=== PATIENT | female | born 1950 | race Caucasian/White ===

== ENCOUNTER 2022-05-11 12:27 | Outpatient (CLI) | payer MEDICARE, SELFPAY | END 2022-05-11 12:28 | disposition home or self-care (01) | PROVIDERS: PCP Family Medicine; Visit Provider Urology | DX: N31.9 Neuromuscular dysfunction of bladder, unspecified (principal); Z01.818 Encounter for other preprocedural examination | CPT/HCPCS: 87086; 87088 ==

== ENCOUNTER 2022-05-17 00:42 | Day surgery (SDC) | payer MEDICARE, SELFPAY ==
[2022-05-08 09:34] VITALS: BMI 28.0
--- NOTE | 2022-05-08 09:45 | PC.NURSE ---
Report to the Outpatient Waiting Room, entrance under the green pavilion located off [facility], at time _0830_ on date _05/17/22_. Planned Procedure Time: _1030_. Time changes happen often and if your time is changed the preop area will call you the afternoon before. - You and your visitor will be asked to self-screen and do not enter if you have any COVID symptoms. - Only one visitor is requested with a max of two and NO children visitors are allowed at this time. - The patient visitor may be requested to leave or wait in car when not with patient due to distancing restrictions. - A mask is optional within the hospital at this time. Patients may have clear liquids (water, carbonated beverages, clear teas, apple juice) until 3 hours prior to surgery (0730 AM) with a maximum of 20 ounces. - No food from midnight until time of surgery Take the following medications with a SIP of water the morning of surgery: _ALPRAZOLAM (XANAX) IF NEEDED_ DO NOT STOP ANY OF YOUR OTHER PRESCRIPTION MEDICATIONS PRIOR TO SURGERY ?EXCEPT THE FOLLOWING Medications to discontinue per physician ___N/A , Date to take last dose Please no make-up, nail macedonian, hairspray, perfume, deodorant, or body powder the day of surgery. No jewelry (including any body piercings) or valuables the day of surgery, leave them at home. Please take a shower or bath the night before, or the morning of, surgery with an antibacterial soap. Wear comfortable, loose fitting clothing. - Jewelry must be removed prior to entering the operating room. Rings and piercings that are not removed may be cut off. - The hospital will not accept responsibility for valuables. - Please leave all valuables, including medications, at home the day of surgery. If you are going home after surgery, a licensed patrol driver must drive you home. - NO public transportation without another adult if you receive anesthesia. - We recommend that an adult stay with you for 24 hours following discharge. - We also recommend that you do not drive, make important decision, drink alcoholic beverages, or take any drugs that were not prescribed by your health care provider for at least 24 hours after your discharge time. Follow any additional instructions given to you from your surgeon. If you or anyone in your household have experienced Covid symptoms in the past week, please notify your surgeon or the nurse liaison at the phone number below for possible testing. Telephone instructions given to _PATIENT_and asked if any additional questions and then verbalized understanding. Patient advised to call surgeon office or pre surgery nurse liaison [phone] if any additional questions.
--- NOTE | 2022-05-13 12:45 | P.HP_ITS ---
H&P: HPI History of Present Illness Date/Time: 05/13/22 12:45 Chief Complaint: Hunner's ulcer Narrative: Pelvic pain symptoms and visible lesion on cystoscopy [facility] Past Medical History Medical History (Updated 05/13/22 @ 12:45 by Ciro Rubin MD) Anxiety Hypothyroidism (acquired) Social History Social History Smoking status: Former smoker Tobacco type: cigarettes Second hand tobacco smoke exposure: No Smoking end date: 03/10/99 Additional smoking assessment comments: STATES SMOKED ON/OFF ONLY ON THE WEEKENDS X 15YS - QUIT 1999 Alcohol intake: never Substance use: never Substance use type: does not use Living arrangements: alone Occupation/Education: retired Spiritual care concerns: No Meds Home Medications and Allergies Home Medications Medication Instructions Recorded Confirmed Type alprazolam 1 mg tablet 1 mg PO QHS PRN anxiety #10 tabs 12/05/21 05/08/22 Rx meclizine 25 mg tablet 25 mg PO TID PRN dizziness #10 tabs 12/05/21 05/08/22 Rx Allergies Allergy/AdvReac Type Severity Reaction Status Date / Time aspirin Allergy Severe hives, Verified 05/08/22 09:32 tinnitus Exam Narrative: No acute distress Normal breathing Alert orient x3 Assessment and Plan Assessment and plan (1) Hunner's ulcer: Code(s): N30.10 - Interstitial cystitis (chronic) without hematuria Status: Acute Assessment and Plan: Cystoscopy, bladder biopsy, steroid injection. Understands risks of bleeding, infection, lack of efficacy, damage to the urinary tract. Agrees to proceed
--- NOTE | 2022-05-13 12:47 | PM.IMHP ---
H&P: HPI History of Present Illness Date/Time: 05/13/22 12:47 Chief Complaint: Hunner's ulcer Narrative: Pelvic pain symptoms and visible lesion on cystoscopy Review of Systems Review of Systems: All systems reviewed & are unremarkable except as noted in HPI and below PMFSH Past Medical History Medical History Anxiety Hypothyroidism (acquired) Social History Social History Smoking status: Former smoker Tobacco type: cigarettes Second hand tobacco smoke exposure: No Smoking end date: 03/10/99 Additional smoking assessment comments: STATES SMOKED ON/OFF ONLY ON THE WEEKENDS X 15YS - QUIT 1999 Alcohol intake: never Substance use: never Substance use type: does not use Living arrangements: alone Occupation/Education: retired Spiritual care concerns: No Meds Home Medications and Allergies Home Medications Medication Instructions Recorded Confirmed Type alprazolam 1 mg tablet 1 mg PO QHS PRN anxiety #10 tabs 12/05/21 05/08/22 Rx meclizine 25 mg tablet 25 mg PO TID PRN dizziness #10 tabs 12/05/21 05/08/22 Rx Allergies Allergy/AdvReac Type Severity Reaction Status Date / Time aspirin Allergy Severe hives, Verified 05/08/22 09:32 tinnitus Exam Narrative: No acute distress Normal breathing Alert orient x3 Assessment and Plan Assessment and plan (1) Hunner's ulcer: Code(s): N30.10 - Interstitial cystitis (chronic) without hematuria Status: Acute Assessment and Plan: Cystoscopy, bladder biopsy, steroid injection. Understands risks of bleeding, infection, damage to the urinary tract, lack of efficacy. Agrees to proceed
--- NOTE | 2022-05-17 07:14 | WPDHPUPDATE1 ---
History and Physical Update Update Date/Time: 05/17/22 07:14 History and Physical has been reviewed, including an updated exam of the patient. There are NO changes in the patient's condition. Risks, benefits, and alternatives have been discussed and questions answered. Patient agrees to proceed with procedure.
--- NOTE | 2022-05-17 09:23 | P.PNAN_ITS ---
Anes - Initial Pre Proc Eval Procedure: Operation Date: 05/17/22 10:30 Proposed Procedures p Cystoscopy, Bladder Biopsy With Steroid Injection - Ciro Rubin MD Date/Time: 05/17/22 09:23 Surgeon: Ciro Rubin MD Pre Op Diagnosis: neuropathic Bladder Patient Data Age: 71 Gender: F Height: 1.6 m Weight: 71.81 kg Allergies Allergy/AdvReac Type Severity Reaction Status Date / Time aspirin Allergy Severe hives, Verified 05/08/22 09:32 tinnitus Home Medications Medication Instructions Recorded Confirmed Type alprazolam 1 mg tablet 1 mg PO QHS PRN anxiety #10 tabs 12/05/21 05/08/22 Rx meclizine 25 mg tablet 25 mg PO TID PRN dizziness #10 tabs 12/05/21 05/08/22 Rx Patient hx anesthesia problems: none Family hx anesthesia problems: none Results Review: All pre-operative results and documents have been reviewed as part of the pre- operative evaluation. [facility] Past Medical History Medical History Anxiety Hypothyroidism (acquired) Social History Social History Smoking status: Former smoker Tobacco type: cigarettes Second hand tobacco smoke exposure: No Smoking end date: 03/10/99 Additional smoking assessment comments: STATES SMOKED ON/OFF ONLY ON THE WEEKENDS X 15YS - QUIT 1999 Alcohol intake: never Substance use: never Substance use type: does not use Living arrangements: alone Occupation/Education: retired Spiritual care concerns: No Anes - Eval Final PreProcedure Day of Procedure 05/17/22 09:23 Patient weight: normal Heart: regular rate and rhythm Lungs: clear to auscultation Airway: Mallampati scale class II Neurological: alert and oriented Last oral intake: >/= 8 hours ASA classification: II Emergent: no Anesthetic plan: proceed Anesthesia type and monitoring: general GIVS and standard monitoring Results Review: All pre-operative results and documents have been reviewed as part of the pre- operative evaluation. Informed Consent: The patient's anesthetic plan and its attendant risks and benefits were discussed with the patient/family/POA. Questions were solicited and answers provided to the satisfaction of the patient/family/POA.
[2022-05-17 09:27] VITALS: BP 95/48; PULSE 94; RESP 14; TEMP 36.3; O2SAT 100
[2022-05-17] MEDS: LACTATED RINGERS 1,000 ML 30 ML IV CONT (09:34)
[2022-05-17] MEDS: ceFAZolin 2 GM/D5W 50 ML 2 GM/50 ML BAG IVPB (10:35)
[2022-05-17] MEDS: TRIAMCINOLONE ACET INJ 40 MG/ML VIAL 200 MG XX (10:52)
[2022-05-17] MEDS: LIDOCAINE HCL 2% GEL UROJET 10 ML PKG MUCOUS MEM (10:53)
[2022-05-17 11:06] VITALS: BP 97/55; PULSE 88; RESP 14; O2SAT 100
--- NOTE | 2022-05-17 11:16 | W.PM.PROC2 ---
Procedure Note - Detailed Date of Procedure 05/17/22 Pre-op Diagnosis Hunner's ulceration Post-op Diagnosis Same Procedure Performed cystoscopy, bladder biopsy, injection of steroid Surgeon Ciro Rubin MD Anesthesia MAC Indications this is a woman with bladder pain and frequency. She was visible lesions consistent with Hunner's ulceration she presents for the above. She understands risks of bleeding, infection, damage to the urinary tract, lack of efficacy, need for repeat procedures. She agrees to proceed Findings areas of Hunner's ulceration on the dome of the bladder Description of Procedure she was correctly identified. Informed consent obtained. She from the operating room. She was given MAC anesthesia. She was placed in dorsal lithotomy position. She was prepped and draped sterile fashion. Time-out performed. I applied Uro jet. I performed cystoscopy. She had no trabeculations. She had normal ureteral orifices. She had areas of Hunner's ulceration on the dome of the bladder. I gently biopsied this area of only the mucosa. I sent this for pathologic analysis. I then injected Kenalog. 200 mg total of 40 mg per mill. I fulgurated the area generously as well as the bleeding sites. There was no bleeding under low insufflation pressures. The bladder was drained. She was awakened transferred to PACU in stable condition Estimated Blood Loss 1 Pathology Yes ( bladder biopsy) Condition Stable Disposition PACU
[2022-05-17 11:36] VITALS: BP 117/77; PULSE 84; RESP 14; O2SAT 100
[2022-05-17 12:06] VITALS: BP 110/65; PULSE 80; RESP 14; O2SAT 100
== END 2022-05-17 12:25 | disposition home or self-care (01) ==
PROVIDERS: PCP Family Medicine; Visit Provider Urology
PROC: 0TBB8ZX Excision of Bladder, Via Natural or Artificial Opening Endoscopic, Diagnostic (ICD-10-PCS; CPT 52204; principal; 2022-05-17 10:30)
DX: N30.10 Interstitial cystitis (chronic) without hematuria (principal); E03.9 Hypothyroidism, unspecified; Z87.891 Personal history of nicotine dependence
CPT/HCPCS: 52204; 52283; 87086; 87088; 88305; J0690; J1100; J2250; J2405; J2704; J3010; J3301; J7120

== ENCOUNTER 2022-12-16 14:35 | Outpatient (CLI) | payer MEDICARE, SELFPAY ==
--- NOTE | ~2022-12-16 | CT_ITS ---
EXAMINATION: CT BRAIN W/O DATE: 12/16/2022 15:03 INDICATION: Headache TECHNIQUE: Computed tomography (CT) of the head was performed without intravenous contrast. The dose- length product was 605.33 mGy-cm. COMPARISON: No prior studies for comparison. FINDINGS: Normal brain parenchymal volume for age. Normal rm-white differentiation. No acute intrac ranial hemorrhage, infarction, mass or mass effect. No ventriculomegaly or midline shift. Midline sagittal images demonstrate a normal corpus callosum, c raniovertebral junction and sella turcica. Basilar cisterns are patent. There is a small air-fluid level in the sphenoid sinus, consistent with sinusitis. Mastoids are pneum atized. IMPRESSION: 1. No acute intracranial abnormality. 2: Mild sinus disease. Reviewed, dictated and finalized at location B.
== END 2022-12-16 14:36 | disposition home or self-care (01) ==
PROVIDERS: PCP Family Medicine; Visit Provider Physician Assistant
DX: R42 Dizziness and giddiness (principal); J32.9 Chronic sinusitis, unspecified
CPT/HCPCS: 70450

== ENCOUNTER 2024-06-04 07:59 | Outpatient (CLI) | payer MEDICARE, SELFPAY ==
--- NOTE | ~2024-06-04 | US_ITS ---
US right upper quadrant INDICATION: Hypothyroidism. PROCEDURE: Realtime right upper abdominal ultrasound. COMPARISON: No prior studies for comparison. FINDINGS: The pancreas is normal without focal mass or pancreatic ductal dilation. Liver echotexture is normal without focal mass or intrahepatic biliary dilatation. There is normal directional flow i n the portal vein. The gallbladder is normal without stones, gallbladder wall thickening or pericholecystic fluid. Comm on bile duct measures 3.[address]'s sign. IMPRESSION: 1: Normal limited abdominal ultrasound. Reviewed, dictated and finalized at location A.
--- OUTSIDE RECORDS SUMMARY | 2024-06-04 08:05 | XMS_ITS | Clinical Summary ---
Author Organization [facility] [address] [facility] [address] [facility] l[address] Address [address] [place] [address] Care Team Providers Care Auctioneer Tobacco Name Role Phone Unknown, Notinfile Primary Care Provider Unavail able Allergies Active Allergy Reactions Criticality Noted Date Comments Aspirin Hives,Stomach upset Medium 02/24/2022 Prednazoline Mental status changes High 02/24/2022 Medications No known medications Active Problems No known active problems Social History Tobacco Use Types Packs/Day Years Used Date Smoking Tobacco: Never Assessed Comments Unknown Sex and Gender Information Value Date Recorded Sex Assigned at Not on file Legal Sex Female 1:27 PM TELECOMMUNICATIONS CLERK Gender Identity Not on file Sexual Orientation Not on file Obstetrics History Last Filed Vital Signs Vital Sign Reading Time Taken Comments Blood Pressure 118/60 02/24/2022 3:19 PM TELECOMMUNICATIONS CLERK Pulse 60 02/24/2022 3:19 PM TELECOMMUNICATIONS CLERK Temperature 37.2 C (99 F) 02/24/2022 3:19 PM TELECOMMUNICATIONS CLERK Respiratory Rate 16 02/24/2022 3:19 PM TELECOMMUNICATIONS CLERK Oxygen Saturation 96% 02/24/2022 3:19 PM TELECOMMUNICATIONS CLERK Inhaled Oxygen Concentration - - Weight 71.8 kg (158 lb 3.2 oz) 02/24/2022 3:19 P M TELECOMMUNICATIONS CLERK Height 159.6 cm (5' 2.84 ) 02/24/2022 3:19 PM CS T Body Mass Index 28.17 02/24/2022 3:19 PM TELECOMMUNICATIONS CLERK Plan of Treatment Health Maintenance Due Date Last Done Comments Breast Cancer Screening-Mammogram 1950 Colon Cancer Screening-Colonoscopy 1950 Depression Screening 1950 Fall Risk Assessment 1950 Hepatitis C Screening 1950 Osteoporosis Screening-Bone Density Scan 1950 DTaP/Tdap/Td Vaccine (1 - Tdap) 1960 Hepatitis B Screening 10/08/1967 Pneumococcal vaccine 65+ (1 of 1 - PCV) 10/08/1999 Zoster Vaccine (1 of 2) 10/08/1999 Well Visit 65+ 2014 Influenza Vaccine (#1) 2023 Insurance [facility] HMO REF Care Teams Auctioneer Tobacco Relationship Specialty Start Date End Date Unknown, Notinfile PCP - General 02/24/22
--- OUTSIDE RECORDS SUMMARY | 2024-06-04 08:05 | XMS_ITS | Referral Summary ---
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 ATTENDANT Gender Identity Not on file Sexual Orientation Not on file Last Filed Vital Signs Vital Sign Reading Time Taken Comments Blood Pressure 118/60 02/24/2022 3:19 PM PLAYROOM ATTENDANT Pulse 60 02/24/2022 3:19 PM PLAYROOM ATTENDANT Temperature 37.2 C (99 F) 02/24/2022 3:19 PM PLAYROOM ATTENDANT Respiratory Rate 16 02/24/2022 3:19 PM PLAYROOM ATTENDANT Oxygen Saturation 96% 02/24/2022 3:19 PM PLAYROOM ATTENDANT Inhaled Oxygen Concentration - - Weight 71.8 kg (158 lb 3.2 oz) 02/24/2022 3:19 P M PLAYROOM ATTENDANT Height 159.6 cm (5' 2.84 ) 02/24/2022 3:19 PM CS T Body Mass Index 28.17 02/24/2022 3:19 PM PLAYROOM ATTENDANT Plan of Treatment Not on file Insurance [facility] RE[facility] Care Teams Special Forces Engineer Sergeant Relationship Specialty Start Date End Date Unknown, Notinfile PCP - General 02/24/22
== END 2024-06-04 08:00 | disposition home or self-care (01) ==
PROVIDERS: PCP Family Medicine; Visit Provider Student in an Organized Health Care Education/Training Program
DX: E03.9 Hypothyroidism, unspecified (principal); R74.8 Abnormal levels of other serum enzymes
CPT/HCPCS: 76705

== ENCOUNTER 2025-01-12 11:13 | Outpatient (CLI) | payer MEDICARE, SELFPAY ==
--- NOTE | ~2025-01-12 | MM_ITS ---
EXAMINATION: MM screening geronimo BI w marlena HISTORY: Screening TECHNIQUE: Craniocaudal and mediolateral oblique 3-D tomosynthesis images were obtained and synthetic 2-D images were generated. CAD analysis was submitted and interpreted. COMPARISON: None provided BREAST PARENCHYMAL COMPOSITION: The breasts are almost entirely fatty. FINDINGS: There is no evidence of suspicious mass, calcification, or architectural distortion to suggest malignancy in either breast. IMPRESSION: 1. No mammographic evidence of malignancy. 2. Recommend routine screening mammography in one year. BI-RADS Category 1: Negative Reviewed, dictated and finalized at location A. R SHEAR OPERATOR
--- NOTE | ~2025-01-12 | DEXA_ITS ---
Bone Density Report Name: KASSI ARTEAGA Age: 74 Sex: Female Ethnicity: White Date of : 1950 Indication: postmenopausal; screening for osteoporosis; asthma or emphysema; Referring Provider: CINDY JIMENEZ Study: Bone densitometry was performed. Exam Date: January 12, 2025 Accession number: [id number] Bone Density: Region BMD T-score Z-score Classification AP Spine(L1-L4) 0.849 -1.8 0.6 Osteopenia Femoral Neck (Left) 0.547 -2.7 -0.6 Osteoporosis Total Hip (Left) 0.714 -1.9 -0.1 Osteopenia Femoral Neck (Right) 0.598 -2.3 -0.2 Osteopenia Total Hip (Right) 0.716 -1.9 -0.1 Osteopenia Total Hip Mean 0.715 -1.9 -0.1 Osteopenia World Health Organization criteria for BMD impression classify patients as: Normal (T-score at or above -1.0), Osteopenia (T-score between -1.0 and -2.5), or Osteoporosis (T-score at or below -2.5). 10-year Fracture Risk: FRAX not reported because: Some T-score for Spine Total or Hip Total or Femoral Neck at or below -2.5 Clinical Information Provided by Patient: Has used the following medications: Vitamin D Has the following medical conditions: Asthma or Emphysema Patient maximum height was 63 Menopause Age: 51 No regular weight bearing exercise Drinks caffeinated beverages Onset of menses at age 10 Number of children 2 Impression: The patient has osteoporosis, based on the Left Femoral Neck T-score. Discussion: INCREASED RISK OF FRACTURE. BONE DENSITY IS UNDESIRABLY LOW AT ONE OR MORE SKELETAL SITES, CONSISTENT WITH POSTMENOPAUSAL OSTEOPOROSIS. This patient's lowest T-score meets the World Health Organization's (WHO) criteria for osteoporosis at one or more sites (T-score -2.5 or below). In untreated patients, the risk of osteoporotic fracture increases approximately two-fold for each 1.0 SD decrease in T-score. Low bone density is not the only risk factor for fracture; also consider factors such as patient's age, frailty or poor health, risk of falling, risk of injury, previous osteoporotic fracture, family history of osteoporosis, cigarette smoking, low body weight, etc. Not everyone with low bone mineral density has osteoporosis; osteomalacia and other metabolic bone disorders should also be considered. Patients who have osteoporosis should be evaluated for specific diseases and conditions (secondary causes) that may cause or contribute to bone loss. The [place] Association [employer] Clinical Endocrinologists (AACE) and National Osteoporosis Foundation (NOF) recommend pharmacologic intervention for all postmenopausal women whose T-score is in this range. The patient should follow a healthful lifestyle (good nutrition with adequate calcium and vitamin D, and appropriate weight-bearing exercise). Follow-Up: Consider a repeat BMD and Vertebral Fracture Assessment (VFA) exam in 2 years or sooner if medically necessary, to reassess this patient's status. Reported by: ZOË on 01/12/2025 2:19:00 PM. Reviewed, dictated and finalized at location A.
== END 2025-01-12 11:14 | disposition home or self-care (01) ==
PROVIDERS: PCP Student in an Organized Health Care Education/Training Program; Visit Provider Obstetrics & Gynecology Gynecology
DX: Z12.31 Encounter for screening mammogram for malignant neoplasm of breast (principal); Z78.0 Asymptomatic menopausal state; M85.88 Other specified disorders of bone density and structure, other site; M81.0 Age-related osteoporosis without current pathological fracture; M85.852 Other specified disorders of bone density and structure, left thigh; M85.851 Other specified disorders of bone density and structure, right thigh
CPT/HCPCS: 77063; 77067; 77080